=== PATIENT | female | born 1990 | race Caucasian/White ===

== ENCOUNTER 2020-01-11 11:55 | Emergency (ER) | payer OTHER, SELFPAY ==
[2020-01-11 12:14] VITALS: BP 114/73; PULSE 86; RESP 20; TEMP 36.4; O2SAT 100
--- NOTE | 2020-01-11 13:13 | ED.GENADULT ---
HPI - General Adult General Chief complaint: Ear Stated complaint: L/[place] Time Seen by Provider: 01/11/20 13:13 Source: patient Mode of arrival: ambulatory Limitations: no limitations History of Present Illness HPI narrative: 29-year-old female patient presents to the [facility] with complaints of left ear pain for the past 3 days. Patient states she has been having cold-like symptoms with a sore throat, stuffy nose and nasal drainage for the past week or so and states that the ear pain just started about 3 days ago. Patient denies any fevers that she is aware of. Patient states she has been taking ibuprofen for her pain. Related Data Allergies Allergy/AdvReac Type Severity Reaction Status Date / Time Penicillins Allergy Unknown Verified 03/29/18 20:50 Review of Systems Review of Systems: Narrative: CONSTITUTIONAL: Denies fever, chills, or sweats. EYES: Denies visual changes, redness, or discharge. ENT: Positive rhinorrhea, congestion, sore throat, positive left otalgia. CARDIOVASCULAR: Denies chest pain, palpitations, or edema. RESPIRATORY: Denies cough or dyspnea. GASTROINTESTINAL: Denies abdominal pain, nausea, vomiting, or diarrhea. GENITOURINARY: Denies dysuria or hematuria. SKIN: Denies rash or itching. MUSCULOSKELETAL: Denies back pain, joint pain, or myalgia. NEUROLOGIC: Denies headache, numbness, or weakness. PSYCHIATRIC: Denies anxiety or depression. PMFSH Comments At the time of my signature I agree with nursing past medical history, surgical, social, and family history. There is no relevant family history pertinent to the presenting complaint. Exam Narrative: Exam Narrative: GENERAL: Well-appearing, well-nourished, and in no acute distress. HEAD: Normocephalic, atraumatic. EYES: PERRLA and EOMI. ENT: Nares clear, no rhinorrhea or epistaxis. Mucous membranes moist. Posterior pharynx with slight erythema but no tonsil enlargement no exudates or lesions present. Left TM with erythema. No foreign bodies in the canal. NECK: Supple. No lymphadenopathy CHEST: Clear to auscultation. No respiratory distress. HEART: Regular rate and rhythm. No murmur heard. Normal peripheral pulses. ABDOMEN: Soft, nontender, nondistended, normal active bowel sounds. EXTREMITIES: Normal range of motion. No edema. SKIN: Warm, dry, no rash. NEURO: No focal deficits. Alert and oriented x3. Course Vital Signs Vital signs: Vital Signs Temperature 36.4 C 01/11/20 12:14 Pulse Rate 86 01/11/20 12:14 Respiratory Rate 01/11/20 12:14 Blood Pressure 114/73 01/11/20 12:14 Pulse Oximetry 100 01/11/20 12:14 Temperature 36.4 C 01/11/20 12:14 Pulse Rate 86 01/11/20 12:14 Respiratory Rate 01/11/20 12:14 Blood Pressure 114/73 01/11/20 12:14 Pulse Oximetry 100 01/11/20 12:14 Vital signs reviewed. Medical Decision Making Differential Diagnosis Differential Diagnosis: Differential diagnosis: Otitis media, otitis externa, perforated TM, infection of the outer ear, foreign body or cerumen impaction, ruptured TM, acute mastoiditis, ligament otitis externa, dehydration, pneumonia, sepsis, dental or intraoral infection, TMJ dysfunction Discussed with patient that does appear that she is got an ear infection to the left ear and therefore we will discharge her home with some antibiotics. Discussed with patient she can continue taking Tylenol and ibuprofen as needed for the pain. Discussed with patient I would also probably recommend a Flonase and a daily antihistamine such as Zyrtec or Silvia to help with the sinus and cold symptoms to promote the drainage away from the ears. Patient verbalized understanding denies any other questions or concerns at this time. Vital Signs Vital Signs: Vital Signs Temperature 36.4 C 01/11/20 12:14 Pulse Rate 86 01/11/20 12:14 Respiratory Rate 01/11/20 12:14 Blood Pressure 114/73 01/11/20 12:14 Pulse Oximetry 100 01/11/20 12:14 Temperature 36.4 C
== END 2020-01-11 13:27 | disposition home or self-care (01) ==
PROVIDERS: Emergency Provider Nurse Practitioner Family; PCP Emergency Medicine
DX: H66.92 Otitis media, unspecified, left ear (principal)
CPT/HCPCS: 99213; G0463

== ENCOUNTER 2021-05-07 08:48 | Inpatient (IN) | payer MEDICAID, SELFPAY ==
[2021-05-07] VITALS (52 sets, daily range): BP systolic 93–158; BP diastolic 43–115; PULSE 54–267; RESP 16–20; TEMP 36.6–36.9; O2SAT 74–100; BMI 26.4
--- NOTE | 2021-05-07 09:24 | PM.IMHP ---
H&P: HPI History of Present Illness Date/Time: 05/07/21 09:24 30 yo at 39wks presents for repeat low-transverse section and bilateral tubal sterilization. complicated by a history of MTHFR, GERD, SIMEON, HSV, prior and desires repeat and bilateral tubal sterilization. I explained her condition procedure and risks involved she understands accepts and agrees to proceed. [facility] tubal consent form has been signed. She understands the risk of surgery including but not limited to bleeding infection injury to bladder bowel baby pelvic vessels DVT endometritis UTI hemorrhage and the risk of anesthesia. She understands the failure rate of tubal sterilization 1 to 01/1000 with increased risk of ectopic and its sequelae. Patient will be undergoing repeat bilateral tubal sterilization with bilateral salpingectomy under spinal anesthesia. Chief Complaint: term repeat and bilateral tubal sterilization [facility] Past Medical History Medical History (Updated 05/07/21 @ 09:37 by Alvaro Chow MD) Compound heterozygous MTHFR mutation [id number] Depression Encounter for female sterilization procedure SIMEON (generalized anxiety disorder) GERD (gastroesophageal reflux disease) HSV (herpes simplex virus) infection Migraine Recurrent loss 11/27/20162080314Lwowrzfv, SpontaneousD&C required Smoker Spontaneous miscarriage 01/03/2018763719Pcoigggx, Spontaneous Subclinical hypothyroidism Term Vaginal delivery 08/21/20001406 lbs.8.99 oz.Standard Vaginal DeliveryFull Term [facility] Vaginal delivery 09/27/20021406 lbs.8.99 oz.Standard Vaginal DeliveryFull Term [facility] Vaginal delivery 04/14/20151426 lbs.8.99 oz.Standard Vaginal DeliveryFull Term [facility] Surgical History Surgical History (Updated 05/07/21 @ 09:38 by Alvaro Chow MD) [facility] and [facility]ttage Dilation and curettage - 11/27/2016 Family History Family History (Updated 05/07/21 @ 09:40 by Alvaro Chow MD) Mother , age 49 Lung cancer Grandparent Breast cancer Social History Social History (Updated 05/07/21 @ 09:42 by Alvaro Chow MD) Smoking packs per day: 1 Smoking cigarettes per day: 20.0 Years smoked: 10 Smoking pack-years: 10.00 Smoking status: Current every day smoker Tobacco type: cigarettes Second hand tobacco smoke exposure: Yes Alcohol intake: never Substance use: former Substance use type: marijuana Living arrangements: with family Occupation/Education: unemployed Gender identity (if verbalized by the patient): Female Sexual Orientation (if Verbalized by the Patient): Straight or Heterosexual Spiritual care concerns: No Agree to blood products: Yes Meds Home Medications and Allergies Home Medications Medication Instructions Recorded Confirmed Type cefdinir 300 mg PO Q12H 7 Days #14 cap 01/11/20 Rx Allergies Allergy/AdvReac Type Severity Reaction Status Date / Time Penicillins Allergy Unknown Verified 03/29/18 20:50 Exam Const: General: cooperative, healthy appearing, comfortable, no acute distress, well developed, alert, awake and Physically active Nutritional Appearance: average body habitus Orientation/consciousness: patient oriented x3 Limitations: no limitations HENMT: Head: normal to inspection Eyes: General: appearance normal, both eyes and all related structures Neck: Neck: normal visual inspection and full ROM Chest: Chest palpation & inspection: normal inspection of the chest Breast/axilla inspection: normal inspection of the breasts Resp: Effort & Inspection: normal respiratory effort Auscultation: clear to auscultation
--- NOTE | 2021-05-07 09:26 | WPDHPUPDATE1 ---
History and Physical Update Update Date/Time: 05/07/21 09:26 History and Physical has been reviewed, including an updated exam of the patient. There are NO changes in the patient's condition. Risks, benefits, and alternatives have been discussed and questions answered. Patient agrees to proceed with procedure. 30 yo at 39wks presents for repeat low-transverse section and bilateral tubal sterilization. complicated by a history of MTHFR, GERD, SIMEON, HSV, prior and desires repeat and bilateral tubal sterilization. I explained her condition procedure and risks involved she understands accepts and agrees to proceed. [place] [facility] tubal consent form has been signed. She understands the risk of surgery including but not limited to bleeding infection injury to bladder bowel baby pelvic vessels DVT endometritis UTI hemorrhage and the risk of anesthesia. She understands the failure rate of tubal sterilization 1 to 01/1000 with increased risk of ectopic and its sequelae. Patient will be undergoing repeat bilateral tubal sterilization with bilateral salpingectomy under spinal anesthesia.
--- NOTE | 2021-05-07 09:48 | WPDANESEPPF ---
Anes - Initial Pre Proc Eval Procedure: Operation Date: 05/07/21 10:30 Proposed Procedures p Repeat Section with Bilateral Salpingectomy for Sterilzation - Alvaro Chow MD Date/Time: 05/07/21 09:48 Surgeon: Alvaro Chow MD Pre Op Diagnosis: Patient Data Age: 30 Gender: F Height: Weight: Allergies Allergy/AdvReac Type Severity Reaction Status Date / Time Penicillins Allergy Unknown Verified 03/29/18 20:50 Home Medications Medication Instructions Recorded Confirmed Type cefdinir 300 mg PO Q12H 7 Days #14 cap 01/11/20 Rx Patient hx anesthesia problems: none Family hx anesthesia problems: none PMFSH Past Medical History Medical History (Updated 05/07/21 @ 09:37 by Alvaro Chow MD) Compound heterozygous MTHFR mutation C677T/[id number] Depression Encounter for female sterilization procedure SIMEON (generalized anxiety disorder) GERD (gastroesophageal reflux disease) HSV (herpes simplex virus) infection Migraine Recurrent loss 11/27/20161588686Ufivlbjq, SpontaneousD&C required Smoker Spontaneous miscarriage 01/03/2018407666Dfmfepkb, Spontaneous Subclinical hypothyroidism Term Vaginal delivery 08/21/20001406 lbs.8.99 oz.Standard Vaginal DeliveryFull Term [facility] Vaginal delivery 09/27/20021406 lbs.8.99 oz.Standard Vaginal DeliveryFull Term [facility] Vaginal delivery 04/14/20151426 lbs.8.99 oz.Standard Vaginal DeliveryFull Term [facility] Surgical History Surgical History (Updated 05/07/21 @ 09:38 by Alvaro Chow MD) Delivery by section 03/18/2019139.36 lbs.9 oz.MCesareanFull Term [facility] H/O dilation and curettage Dilation and curettage - 11/27/2016 Family History Family History (Updated 05/07/21 @ 09:40 by Alvaro Chow MD) Mother , age 49 Lung cancer Grandparent Breast cancer Social History Social History (Updated 05/07/21 @ 09:42 by Alvaro Chow MD) Smoking packs per day: 1 Smoking cigarettes per day: 20.0 Years smoked: 10 Smoking pack-years: 10.00 Smoking status: Current every day smoker Tobacco type: cigarettes Second hand tobacco smoke exposure: Yes Alcohol intake: never Substance use: former Substance use type: marijuana Living arrangements: with family Occupation/Education: unemployed Gender identity (if verbalized by the patient): Female Sexual Orientation (if Verbalized by the Patient): Straight or Heterosexual Spiritual care concerns: No Agree to blood products: Yes Anes - Eval Final PreProcedure Day of Procedure 05/07/21 09:48 Patient weight: obese Heart: regular rate and rhythm Lungs: clear to auscultation and normal air movement Airway: Mallampati scale class II Neurological: alert and oriented Last oral intake: >/= 8 hours ASA classification: II Emergent: no Anesthetic plan: proceed Anesthesia type and monitoring: regional spinal Informed Consent: The patient's anesthetic plan and its attendant risks and benefits were discussed with the patient/family/POA. Questions were solicited and answers provided to the satisfaction of the patient/family/POA.
[2021-05-07 10:30] LABS: Basophils Absolute Auto 0.1 K/mm3 (0.0-0.1); Basophils Percent Auto 0.7 % (0.2-1.2); Eosinophils Absolute Auto 0.2 K/mm3 (0-0.3); Hematocrit 32.3 % (37.0-47.0); Hemoglobin 10.3 g/dL (12.0-15.0); Immature Granulocyte Absolute 0.04 K/mm3 (0.00-0.031); Immature Granulocyte Percent A 0.4 % (0-0.5); Lymphocytes Percent Auto 22.1 % (18.3-44.2); Mean Corpuscular HGB Conc 31.9 g/dl (32-36); Mean Corpuscular Hemoglobin 27.5 pg (26-34); Mean Corpuscular Volume 86.4 fl (80-100); Mean Platelet Volume 10.2 fl (7.4-10.4); Monocytes Absolute Auto 0.9 K/mm3 (0.1-0.6); Monocytes Percent Auto 8.5 % (2.6-8.5); Neutrophils Absolute Auto 6.6 K/mm3 (1.3-6.7); Neutrophils Percent Auto 66.3 % (45.5-73.1); Platelet Count Result 279 k/mm3 (150-375); Red Blood Count 3.74 M/mm3 (4.2-5.4); Red Cell Distribution Width 13.4 % (11.5-14.5)
--- NOTE | 2021-05-07 10:39 | LDADM ---
This patient, Cristela Gaitan, was admitted to OB Post 113 on 05/07/21 at 08:48. Plans for labor, pain management and were discussed with patient. Patient/family oriented to hospital policies and general routines including ID bracelet, bed and alarms, visiting hours, pain management, procedures, bathroom and other care routines, personal items, smoking policy, room service/diet and guest tray routines, infant security routines, and visiting hours. Patient/Family are encouraged to report perceived risks to care and to ask questions if they do not understand what they are told or what they should do. See OBIX for further documentation.
[2021-05-07] MEDS: LACTATED RINGERS 1,000 ML 125 ML IV CONT (11:30)
[2021-05-07] MEDS: ceFAZolin 2 GM/D5W 50 ML 2 GM/50 ML BAG IVPB (11:42)
--- NOTE | 2021-05-07 12:56 | PM.OBPRVD ---
OB - Delivery Note Procedure Delivery date: 05/07/21 Procedure: Procedures Operation Date: 05/07/21 10:30 Actual Procedure Side Surgeon repeat low-transverse Section Bilateral tubal sterilization with bilateral salpingectomy Alvaro Chow MD events: Previous Intrapartal events: None Induction method: none Delivery monitor: external FHT and external uterine Route of delivery: Laceration Description: None Specimen: Yes Quantitative Blood Loss (ml): 330 Anesthesia type: Spinal Disposition: floor Complications: None Narrative: See full detailed note from tubal [place] Baby Date of : 05/07/21 Time of : 12:04 Weeks of gestation at delivery: 39 gender: Male Weight (pounds): 7 Weight (ounces): 5 presentation: vertex position: Left Occiput Anterior Placenta delivery description: Manual Removal and Normal Configuration cord vessel description: 3 Vessels score one minute: 8 score five minutes: 8
--- NOTE | 2021-05-07 12:59 | W.PM.PROC2 ---
Procedure Note - Detailed Date of Procedure 05/07/21 Pre-op Diagnosis Term Previous Desires repeat Desires bilateral tubal sterilization MTHFR HSV Smoker Recurrent loss Post-op Diagnosis same (Term delivered viable male Previous Desires repeat Desires bilateral tubal sterilization MTHFR HSV Smoker Recurrent loss) Procedure Performed Repeat low-transverse section with delivery of viable male infant and placenta Bilateral tubal sterilization with bilateral salpingectomy Surgeon Alvaro Chow MD Wire Rope Sling Maker printer's assistant x2 Anesthesia spinal (Duramorph) Indications Previous desires repeat section Desires bilateral tubal sterilization Findings Normal uterus tubes ovaries normal upper abdomen hemostatic after delivery Viable male delivered 1204 scores 8 and 8 at 1 and 5 minutes weighing 7 lb 5 oz and 19 in long taken to the nursery stable condition normal transition Placenta intact three-vessel cord normal uterus endometrium Counts correct Complications none Antibiotic prophylaxis Ancef 2 g VTE prevention SCDs To recovery room stable condition Bottle feeding Dr. Rousseau radio board operator Description of Procedure Informed consent obtained tubal sterilization papers from [facility] were confirmed patient taken to the operating room where she was given a spinal anesthetic with Duramorph in the sitting position and then supine position a Chappell catheter was inserted and her abdomen was then prepped and then draped in the usual sterile fashion. A time-out was performed and checked for adequate anesthesia confirmed. Elliptical incision was made around the old scar and the old scar was excised using electrocautery. The fascia was entered with electrocautery bilaterally and then undermined both superior and inferior. The rectus muscles were in the midline. The peritoneum was entered. The vesicouterine peritoneal reflection was incised transversely. A transverse incision was made to the uterus. The uterine incision was extended bilaterally digitally. Rupture membranes revealed clear amniotic fluid. The vertex was then delivered via the abdominal incision with the nose and throat being bulb suction. The cord was clamped and cut. The baby was handed to the OB nurse and nursery nurse in attendance scores 8 and 8 spontaneous respirations and cry normal transition weight 7 lb 5 oz 19 in long born at 12:04 p.m. taken to the nursery in stable condition. Placenta was then delivered intact with a three-vessel cord cord gases cord blood was obtained the uterus was externalized 10 units Pitocin given into the myometrium the uterus contracted well Pitocin given intravenously as well. Blood clots membranes removed from the entry uterine cavity. The uterine incision was then repaired in 2 layers with 0 Vicryl in a running interlocking fashion the 2nd being an imbricating stitch. Bilateral tubal sterilization was then performed in a bilateral sequential fashion the fallopian tubes were traced out to the fimbriated aspect the fallopian tubes were held with [place] clamps and the mesial salpinx was endo coagulated clamps were placed at the proximal tube the arcuate vessel in the fimbria ovarian vessels. The fallopian tubes were excised using electrocautery. The pedicles were then doubly ligated with 2 0 silk suture. Hemostasis was excellent the uterus ovaries were returned to the peritoneal cavity irrigation was performed sponge needle and instrument counts were correct. Anterior peritoneum and rectus muscles reapproximated with 0 Vicryl suture running fashion. Fascia was closed with 2. Quill S RS system bilaterally. Jazmine's fascia reapproximated with 3 0 plain interrupted fashion. Skin closed with the in sorb dissolvable holden and Mepilex and Dermabond applied patient tolerated proced
[2021-05-07 13:58] LABS: Amphetamine Screen Urine Negative (Negative); Barbiturate Screen Urine Negative (Negative); Benzodiazepines Screen Urine Negative (Negative); Cannabinoid Screen Urine Positive (Negative); Cocaine Screen Urine Negative (Negative); Methadone Screen Urine Negative (Negative); Opiate Screen Urine Negative (Negative); Phencyclidine Screen Urine Negative (Negative)
[2021-05-07] MEDS: OXYTOCIN 30 UNITS/NS 500 ML 30 UNITS/500 ML BAG 125 UNITS IV CONT (15:15)
--- NOTE | 2021-05-07 15:30 | PC.NURSE ---
Pt arrived on unit via stretcher accompanied by infant and taken to room 292. PT transferred to bed via maxi air without difficulty. PT oriented to room 292 and surrounding area. PT introductions made and plan of care discussed per postop c section, pain management, bottle feeding, daily care activities and positive drug screen on admission for marijuana. Pt received education and instructions per one to one discussion, mom baby care guide and demonstration. Mom only recipient of such instructions. No barriers to learning identified. PT verbalized understanding of such care. and welcome packet reviewed and discussed.
--- NOTE | 2021-05-07 15:54 | PCCCNOTE ---
Addendum entered by YAZMIN Chaudhry 05/07/21 16:23: 1620: Received an email from [facility] that states: Your information has been reviewed and assessed by a Chief Medical Director and was also approved by a hot strip mill supervisor. The information you provided did not meet one of the criteria for an investigation (eligible victim, eligible perpetrator, eligible event, or jurisdiction). The information as been documented and will be kept on file. Should you learn of further information or have additional concerns, please feel free to contact us. The final intake ID number for this report is [id number]. Original Note: Care Coordination: Met with pt. regarding positive urine drug screen for THC. Pt. reports using THC to help with her anxiety. FOB Addison at bedside. Pt. reports she, , two other children and FOB will be living on [address] [facility] in [facility]. Pt. reports this is her fifth baby; pt. has put one child up for adoption and one child is not in pt's custody. Pt. reports having support from both sides of hers and FOB family. Pt. reports she has everything necessary for . Pt. reports she is in the process of getting set up with [facility] and [employer]. Pt. denies prior DCFS involvement. Per Nursing, baby's meconium will be tested. resources provided to pt. Update given to VIPUL De Paz [facility] report made online: #[id number]. Pt. reports hopeful to discharge this weekend.
[2021-05-07] MEDS: DOCUSATE SODIUM 100 MG CAPSULE PO (19:20)
[2021-05-07] MEDS: SIMETHICONE 80 MG TAB.CHEW PO (19:20)
[2021-05-07] MEDS: KETOROLAC 30 MG/ML VIAL (*BKC) IV PUSH (19:23)
[2021-05-08 04:00] VITALS: BP 99/50; PULSE 67; RESP 16; TEMP 36.8
[2021-05-08] MEDS: IBUPROFEN 600 MG TABLET PO ×3 (04:20→20:08)
[2021-05-08 05:41] LABS: Basophils Percent Auto 0.2 % (0.2-1.2); Eosinophils Absolute Auto 0.2 K/mm3 (0-0.3); Eosinophils Percent Auto 0.9 % (0-4.4); Hematocrit 29.9 % (37.0-47.0); Hemoglobin 9.4 g/dL (12.0-15.0); Immature Granulocyte Absolute 0.12 K/mm3 (0.00-0.031); Immature Granulocyte Percent A 0.6 % (0-0.5); Lymphocytes Absolute Auto 1.65 K/mm3 (0.9-3.2); Lymphocytes Percent Auto 8.6 % (18.3-44.2); Mean Corpuscular HGB Conc 31.4 g/dl (32-36); Mean Corpuscular Hemoglobin 27.4 pg (26-34); Mean Corpuscular Volume 87.2 fl (80-100); Mean Platelet Volume 10.5 fl (7.4-10.4); Monocytes Absolute Auto 1.5 K/mm3 (0.1-0.6); Monocytes Percent Auto 7.7 % (2.6-8.5); Neutrophils Absolute Auto 15.8 K/mm3 (1.3-6.7); Platelet Count Result 254 k/mm3 (150-375); Red Blood Count 3.43 M/mm3 (4.2-5.4); Red Cell Distribution Width 13.5 % (11.5-14.5); White Blood Count 19.2 K/mm3 (4.5-10.0)
[2021-05-08 08:15] VITALS: BP 105/60; PULSE 72; RESP 16; TEMP 36.8; O2SAT 96
--- NOTE | 2021-05-08 08:15 | PM.OBPNVD ---
OB - PN: Subj Subjective Date/time seen: 05/08/21 08:15 Patient comments: no complaints, pain well controlled, tolerating diet and flatus present baby status: doing well and bottle feeding well feeding status: exclusively bottle feeding OB - PN: Obj Data Labs CBC & Chem 7: 05/08/21 04:09 Labs: Laboratory Results - last 24 hr 05/07/21 05/07/21 05/07/21 10:22 10:22 11:34 WBC 10.0 RBC 3.74 L Hgb 10.3 L Hct 32.3 L MCV 86.4 MCH 27.5 MCHC 31.9 L RDW 13.4 Plt Count 279 MPV 10.2 Immature Gran % (Auto) 0.4 Neut % (Auto) 66.3 Lymph % (Auto) 22.1 Ceiba % (Auto) 8.5 Eos % (Auto) 2.0 Baso % (Auto) 0.7 Lymph # (Auto) 2.20 Ceiba # (Auto) 0.9 H Eos # (Auto) 0.2 Baso # (Auto) 0.1 Abs Immat Gran (auto) 0.04 H Absolute Neuts (auto) 6.6 Absolute Nucleated RBC 0.0 Nucleated RBC % 0.0 Urine Opiates Screen Negative Urine Methadone Screen Negative Ur Barbiturates Screen Negative Ur Phencyclidine Scrn Negative Ur Amphetamine Screen Negative U Benzodiazepines Scrn Negative Urine Cocaine Screen Negative U Cannabinoids Screen Positive A Blood Type O Positive Antibody Screen Negative 05/08/21 04:09 WBC 19.2 H RBC 3.43 L Hgb 9.4 L Hct 29.9 L MCV 87.2 MCH 27.4 MCHC 31.4 L RDW 13.5 Plt Count 254 MPV 10.5 H Immature Gran % (Auto) 0.6 H Neut % (Auto) 82.0 H Lymph % (Auto) 8.6 L Ceiba % (Auto) 7.7 Eos % (Auto) 0.9 Baso % (Auto) 0.2 Lymph # (Auto) 1.65 Ceiba # (Auto) 1.5 H Eos # (Auto) 0.2 Baso # (Auto) 0.0 Abs Immat Gran (auto) 0.12 H Absolute Neuts (auto) 15.8 H Absolute Nucleated RBC 0.0 Nucleated RBC % 0.0 Urine Opiates Screen Urine Methadone Screen Ur Barbiturates Screen Ur Phencyclidine Scrn Ur Amphetamine Screen U Benzodiazepines Scrn Urine Cocaine Screen U Cannabinoids Screen Blood Type Antibody Screen OB - PN A/P Assessment and Plan (1) Anemia: Code(s): D64.9 - Anemia, unspecified Status: Acute (2) Term delivered: Code(s): O80 - Encounter for full-term uncomplicated delivery Status: Acute (3) Delivery by section: Status: Acute (4) Encounter for female sterilization procedure: Code(s): Z30.2 - Encounter for sterilization Status: Acute Plan day: 1 Plan: routine care, discharge home and follow up 6 weeks Time Spent With Patient Time: Total time spent is greater than 50% in coordination of care (as documented) at patient's floor/unit and/or counseling patient: Time with patient: less than 15 minutes Review of Systems Review of Systems: All systems reviewed & are unremarkable except as noted in HPI and below Exam Const: General: comfortable, no acute distress, alert and awake Orientation/consciousness: patient oriented x3 Chest: Breast/axilla inspection: normal inspection of the breasts Resp: Effort & Inspection: normal respiratory effort Auscultation: clear to auscultation bilaterally Cardio: Rate: regular rate GI: Inspection: normal to inspection and incision (Dressing dry and intact) GI Palp: Yes Soft to palpation Percussion: Yes normal to percussion Auscultation: normal bowel sounds : General: Yes no CVA tenderness Bimanual exam- vagina & uterus: non-tender Urinary Catheter: Urinary Catheter: patent and draining and urine clear Psych: Appearance: grossly normal Mental Status: mental status grossly normal Affect: normal affect Attitude: cooperative Thought content: Yes Normal thought content present Judgement: Good judgement present (Psych)
--- NOTE | 2021-05-08 09:21 | WPDANLDPN2 ---
Anes-Prog Note L&D Date/Time: 05/08/21 09:21 Comfortable throughout: section Neuraxial method: spinal Epidural/Spinal procedure site: clean & non-tender Neuro status: Neuro function grossly intact. Cardiovascular status: normal Respiratory status: normal Airway patency: baseline Mental status: baseline Post-Op hydration status: normal Vital Signs: Last Vital Signs Temp 36.8 C 05/08/21 04:00 Pulse 67 05/08/21 04:00 Resp 16 05/08/21 04:00 BP 99/50 L 05/08/21 04:00 Pulse Ox 100 05/07/21 17:00 Pain score (VAS): 3 I/O: Intake & Output 05/07/21 05/08/21 05/08/21 23:59 07:59 15:59 Intake Total 1000 480 Output Total 750 300 Balance 250 180 Post-procedural complaints: none Patient feedback: Patient satisfied with anesthetic care.
--- NOTE | 2021-05-08 09:22 | WPDANLDNPN2 ---
Anes-Prog Note L&D-Neuraxial Date/Time: 05/08/21 09:22 Neuraxial medications: intrathecal PF morphine Opiod-related complaints: none Patient feedback: Patient satisfied with post-operative pain management.
[2021-05-08] MEDS: POLYSACCHARIDE IRON COMPLEX 150 MG CAPSULE PO ×2 (12:13→16:50)
[2021-05-08] MEDS: ESCITALOPRAM OXALATE 10 MG TABLET PO (12:13)
[2021-05-08] MEDS: DOCUSATE SODIUM 100 MG CAPSULE PO ×2 (12:13→16:49)
[2021-05-08] MEDS: buPROPion HCL XL (24 HR) 150 MG TABCR PO (12:14)
[2021-05-08 12:30] VITALS: BP 110/62; PULSE 70; RESP 16; TEMP 36.7; O2SAT 97
[2021-05-08] MEDS: HYDROcodone/acetaminophen (*CRX) 10-325 MG TABLET 1 TAB PO (16:49)
[2021-05-08 20:00] VITALS: BP 120/69; PULSE 70; RESP 16; TEMP 36.6; O2SAT 100
[2021-05-08] MEDS: SIMETHICONE 80 MG TAB.CHEW PO (20:08)
[2021-05-08] MEDS: HYDROcodone/acetaminophen (*CRX) 5-325 MG TABLET 1 TAB PO (20:08)
--- NOTE | 2021-05-09 04:10 | PC.NURSE ---
05/08/2021 at 2300 Patient viewed the discharge video Mother & Baby Care, The First Two Weeks . Patient was given the opportunity and encouraged to ask questions. Patient verbalized understanding of information shared and has been given the mother/baby guide for home reference.
[2021-05-09 08:00] VITALS: BP 103/69; PULSE 75; RESP 16; TEMP 36.6; O2SAT 99
[2021-05-09] MEDS: POLYSACCHARIDE IRON COMPLEX 150 MG CAPSULE PO (10:31)
[2021-05-09] MEDS: DOCUSATE SODIUM 100 MG CAPSULE PO (10:31)
[2021-05-09] MEDS: ESCITALOPRAM OXALATE 10 MG TABLET PO (10:31)
[2021-05-09] MEDS: IBUPROFEN 600 MG TABLET PO (10:32)
[2021-05-09] MEDS: buPROPion HCL XL (24 HR) 150 MG TABCR PO (10:32)
[2021-05-09] MEDS: HYDROcodone/acetaminophen (*CRX) 5-325 MG TABLET 1 TAB PO (10:32)
--- NOTE | 2021-05-09 12:10 | PC.NURSE ---
Per instructions from Dr. Chow, patient should remove Aquacel Mepilex AG dressing in 1 week; RN gave instruction sheet to patient for use and care of this dressing.
--- NOTE | 2021-05-09 13:08 | PM.OBDSVD ---
DS: Admitting Diagnosis Admitting Diagnosis Admitting Diagnosis: Term Previous desires repeat Desires bilateral tubal sterilization General herpes MTHFR Smoker Recurrent losses DS: Discharge Diagnosis Discharge Diagnosis (1) Term delivered: Code(s): O80 - Encounter for full-term uncomplicated delivery Status: Acute (2) Delivery by section: Status: Acute (3) Encounter for female sterilization procedure: Code(s): Z30.2 - Encounter for sterilization Status: Acute (4) HSV (herpes simplex virus) infection: Code(s): B00.9 - Herpesviral infection, unspecified Status: Acute (5) Smoker: Code(s): F17.200 - Nicotine dependence, unspecified, uncomplicated Status: Acute (6) Compound heterozygous MTHFR mutation [id number]: Code(s): Z15.89 - Genetic susceptibility to other disease Status: Acute (7) Recurrent loss: Code(s): N96 - Recurrent loss Status: Acute OB - DS: Summary Hospital Course Time spent discussing smoking cessation with patient: 3 to 10 minutes OB Procedures : Ultrasound OB Procedures Intrapartum: low cervical, transverse and Tubal ligation OB Procedures: : P.P. tubal ligation Peripartum Data Delivery Method: Section Laceration Description: None Episiotomy description: None Procedures: Procedures Operation Date: 05/07/21 10:30 Actual Procedure Side Surgeon repeat low-transverse Section with delivery of viable male infant and placenta Bilateral tubal sterilization with bilateral salpingectomy Alvaro Chow MD complications: none [place] 1: Gender: Male Disposition of : home Status at Discharge Cognitive/behavioral status at discharge: Normal Functional status at discharge: independent ambulation Overall status at discharge: patient is back to baseline Time Spent with Patient Time attestation: Total time spent providing and/or coordinating discharge services: Time spent: Less than 30 minutes Exam Const: General: cooperative, healthy appearing, comfortable, no acute distress, well developed, alert, awake and Physically active Nutritional Appearance: average body habitus Orientation/consciousness: patient oriented x3 Limitations: no limitations HENMT: Head: normal to inspection Eyes: General: appearance normal, both eyes and all related structures Neck: Neck: normal visual inspection Chest: Chest palpation & inspection: normal inspection of the chest Resp: Effort & Inspection: normal respiratory effort Cardio: Rate: regular rate Rhythm: regular rhythm GI: Inspection: normal to inspection and incision (Dressing dry and intact) GI Palp: Yes Soft to palpation Auscultation: normal bowel sounds : External Female Exam: normal external appearance Bimanual exam- vagina & uterus: non-tender Back/Spine/Pelvis: Back: no CVA tenderness Skin: General skin exam: normal color Neuro: General: patient oriented x3, gait normal, tone normal and moves all extremities Extrem: General: normal to inspection and full ROM Psych: Appearance: grossly normal Mental Status: mental status grossly normal Speech and movement: Normal speech and movement present Affect: normal affect Attitude: cooperative Thought process: Normal thought process present Thought content: Yes Normal thought content present Insight: Good insight present (Psych) Judgement: Good judgement present (Psych) DS: Data Data Completed and Pending Pending studies at discharge: Pending at discharge 05/07/21 12:35 Surgical [PTH] Routine Labs on day of discharge: Labs from last 24 hours 05/07/21 05/07/21 05/07/21 11:34 10:22 10:22 WBC RBC Hgb Hct MCV MCH MCHC RDW Plt Count MPV Immature Gran % (Auto) Neut % (Auto) Lymph % (Auto)
[2021-05-10 09:16] LABS: Rapid Plasma Reagin Non-Reactive (NonReactive)
[2021-05-12 11:32] VITALS: BP 126/68; PULSE 66; RESP 20; TEMP 37.1; O2SAT 100
== END 2021-05-09 13:37 | disposition home or self-care (01) | DRG 540 ==
LOC: ANHOBPP 13:15 → ANHOB2 15:44
PROVIDERS: Admitting Provider Obstetrics & Gynecology; PCP Emergency Medicine; Visit Provider Obstetrics & Gynecology
PROC: 10D00Z1 Extraction of Products of Conception, Low, Open Approach (ICD-10-PCS; CPT 59514; principal; 2021-05-07 10:30)
DX: O34.211 Maternal care for low transverse scar from previous cesarean delivery (principal); Z30.2 Encounter for sterilization; O99.284 Endocrine, nutritional and metabolic diseases complicating childbirth; E72.12 Methylenetetrahydrofolate reductase deficiency; O99.334 Smoking (tobacco) complicating childbirth; F17.210 Nicotine dependence, cigarettes, uncomplicated; Z3A.39 39 weeks gestation of pregnancy; Z37.0 Single live birth; O99.344 Other mental disorders complicating childbirth; F41.9 Anxiety disorder, unspecified
CPT/HCPCS: 36415; 80307; 85025; 86592; 86850; 86900; 86901; 88302; 88307; A9270; J0131; J0690; J1885; J2274; J2370; J2590; J7120

== ENCOUNTER 2022-08-26 14:20 | Emergency (ER) | payer OTHER, SELFPAY ==
[2022-08-26 14:29] VITALS: BP 139/94; PULSE 76; RESP 16; TEMP 36.9; O2SAT 100
--- NOTE | 2022-08-26 15:41 | ED.EAR ---
HPI - Ear Problem General Chief complaint: Ear Stated complaint: Left ear ache Time Seen by Provider: 08/26/22 15:41 Source: patient and RN notes reviewed Mode of arrival: ambulatory Limitations: no limitations History of Present Illness HPI Narrative: 31-year-old female presents to the [facility] with complaints of left ear pain and a sore throat. Symptoms started yesterday. Denies fevers. No treatment prior to arrival. Related Data Allergies Allergy/AdvReac Type Severity Reaction Status Date / Time Penicillins Allergy Unknown Verified 03/29/18 20:50 Review of Systems Review of Systems: All systems reviewed & are unremarkable except as noted in HPI and below Constitutional: Constitutional: Reports no additional constitutional complaints, Denies chills and Denies fever(s) Eyes: Eyes: Reports no additional eye complaints ENT: Reports as per HPI Cardiovascular: Cardiovascular: Reports no additional cardiovascular complaints Respiratory: Respiratory: Reports no additional respiratory complaints Gastrointestinal: Gastrointestinal: Reports no additional gastrointestinal complaints Musculoskeletal: Musculoskeletal: Reports no additional musculoskeletal complaints Integumentary/Breasts: Skin/Breast: Reports system reviewed and no additional complaints, except as docu Neurologic: Reports system reviewed and no additional complaints, except as documented Psychiatric: Psychiatric: Reports no additional psychiatric complaints Allergic/Immunologic: Allergic/Immunologic: Reports no additional allergic/immunologic complaints [facility] Past Medical History Medical History (Updated 08/26/22 @ 15:46 by Lizabeth So APRN) Anemia Compound heterozygous MTHFR mutation [id number] Depression Encounter for female sterilization procedure SIMEON (generalized anxiety disorder) GERD (gastroesophageal reflux disease) HSV (herpes simplex virus) infection Migraine Recurrent loss 11/27/20161219913Ytqclwtx, SpontaneousD&C required Smoker Spontaneous miscarriage 01/03/2018873141Tcskpcju, Spontaneous Subclinical hypothyroidism Term Vaginal delivery 08/21/20001406 lbs.8.99 oz.Standard Vaginal DeliveryFull Term [facility] Vaginal delivery 09/27/20021406 lbs.8.99 oz.Standard Vaginal DeliveryFull Term [facility] Vaginal delivery 04/14/20151426 lbs.8.99 oz.Standard Vaginal DeliveryFull Term [facility] Surgical History Surgical History Delivery by section 03/18/2019139.36 lbs.9 oz.DavidsareanKim Term [facility] H/O dilation and curettage Dilation and curettage - 11/27/2016 Family History Family History Mother , age 49 Lung cancer Grandparent Breast cancer Social History Social History Smoking packs per day: 1 Smoking cigarettes per day: 20.0 Years smoked: 10 Smoking pack-years: 10.00 Smoking status: Current every day smoker Tobacco type: cigarettes Second hand tobacco smoke exposure: Yes Alcohol intake: never Substance use: current Substance use type: marijuana Gender identity (if verbalized by the patient): Female Sexual Orientation (if Verbalized by the Patient): Straight or Heterosexual Spiritual care concerns: No Agree to blood products: Yes Comments At the time of my signature, I reviewed and agree with the nursing past medical, surgical, social, and family history. There is no relevant family history pertinent to the patient complaint. Exam Const: General: healthy appearing, no acute distress and alert Nutritional Appearance: well nourished Orientation/consciousness: patient oriented x3 Limitations: no limitations HENMT: Head: normal to inspection Ears: EAC's dharmesh
== END 2022-08-26 16:05 | disposition home or self-care (01) ==
PROVIDERS: Emergency Provider Nurse Practitioner; PCP Emergency Medicine
DX: H66.92 Otitis media, unspecified, left ear (principal); F17.210 Nicotine dependence, cigarettes, uncomplicated; F12.90 Cannabis use, unspecified, uncomplicated; K21.9 Gastro-esophageal reflux disease without esophagitis; F41.1 Generalized anxiety disorder; F32.A Depression, unspecified
CPT/HCPCS: 99213; G0463

== ENCOUNTER 2024-10-02 19:58 | Emergency (ER) | payer OTHER, SELFPAY ==
--- NOTE | ~2024-10-02 | XR_ITS ---
CHEST RADIOGRAPH, PA AND LATERAL CLINICAL HISTORY: CP . COMPARISON: None available TECHNIQUE: PA and lateral views of the chest. FINDINGS The cardiomediastinal silhouette is unremarkable. The lungs are clear. Visualized osseous structures and soft tissues are unremarkable. IMPRESSION: No focal infiltrate or effusion. Reviewed, dictated and finalized at location A. NISTRATION PHYSICIAN
--- NOTE | 2024-10-02 20:00 | ECG_ITS ---
Test Date: 2024-10-02 20:09:20 Measurements Intervals [place] Rate: 91 P: 76 WY: 130 QRS: 79 QRSD: 94 T: 71 QT: 382 QTc: 471 Interpretive Statements SINUS RHYTHM ST DEVIATION AND MODERATE T-WAVE ABNORMALITY, CONSIDER ANTEROLAT/INF ISCHEMIA BASELINE ARTIFACT- I, II, III, AVR, AVL, AVF ABNORMAL ECG No previous ECG available for comparison Electronically Signed On 10-03-2024 05:22:21 [employer] by Jacky Hughes D.O.
[2024-10-02 20:02] VITALS: BP 141/81; PULSE 92; RESP 14; TEMP 36.6; O2SAT 100
[2024-10-02 20:28] LABS: Basophils Percent Auto 0.2 % (0.2-1.2); Eosinophils Absolute Auto 0.1 K/mm3 (0-0.3); Eosinophils Percent Auto 0.5 % (0-4.4); Hematocrit 39.1 % (37.0-47.0); Hemoglobin 14.3 g/dL (12.0-15.0); Immature Granulocyte Absolute 0.08 K/mm3 (0.00-0.031); Immature Granulocyte Percent A 0.6 % (0-0.5); Lymphocytes Absolute Auto 1.66 K/mm3 (0.9-3.2); Lymphocytes Percent Auto 13.5 % (18.3-44.2); Mean Corpuscular HGB Conc 36.6 g/dl (32-36); Mean Corpuscular Hemoglobin 37.8 pg (26-34); Mean Corpuscular Volume 103.4 fl (80-100); Monocytes Absolute Auto 1.2 K/mm3 (0.1-0.6); Monocytes Percent Auto 9.7 % (2.6-8.5); Neutrophils Absolute Auto 9.3 K/mm3 (1.3-6.7); Neutrophils Percent Auto 75.5 % (45.5-73.1); Platelet Count Result 190 k/mm3 (150-375); Red Blood Count 3.78 M/mm3 (4.2-5.4); Red Cell Distribution Width 13.6 % (11.5-14.5); White Blood Count 12.3 K/mm3 (4.5-10.0)
[2024-10-02 20:31] VITALS: O2SAT 100
[2024-10-02 20:41] LABS: Prothrombin Time 14.1 Seconds (11.1-14.7)
[2024-10-02 20:42] LABS: Partial Thromboplastin Time 34.2 Seconds (22.3-36.8)
[2024-10-02 20:48] LABS: Alanine Aminotransferase 38 U/L (6-35); Albumin Level 3.9 g/dL (3.5-5.1); Alkaline Phosphatase 111 U/L (38-126); Anion Gap 8 mmol/L (4-12); Aspartate Amino Transferase 58 U/L (14-36); Bilirubin,Total 1.3 mg/dL (0.2-1.3); Blood Urea Nitrogen 8 mg/dL (7-17); Calcium 8.5 mg/dL (8.4-10.2); Carbon Dioxide 35 mmol/L (22-30); Chloride 94 mmol/L (98-107); Estimated CRCL calculation 114 ml/min; Estimated Glomerular Filt Rate > 60; Glucose 138 mg/dL (65-110); Lipase 106 U/L (23-300); Sodium 137 mmol/L (137-145)
[2024-10-02 20:50] LABS: Troponin I < 0.012 ng/mL (0.000-0.034)
[2024-10-02] MEDS: POTASSIUM CHLORIDE 20 MEQ PACKET (FOR LIQUID) 40 MEQ PO (20:59)
--- NOTE | 2024-10-02 21:00 | PC.NURSE ---
Pt refusing IV potassium as well as admission. Pt states she has no one to watch her kids so she would like to sign out AMA. Pt educated on the risks of leaving including worsening condition and . Pt still states she would like to sign out AMA.
[2024-10-02 21:07] VITALS: BP 125/91; PULSE 91; RESP 16; O2SAT 99
[2024-10-02 21:07] LABS: Magnesium 1.6 mg/dL (1.6-2.3)
--- NOTE | 2024-10-02 21:26 | ED_ITS ---
HPI - Chest Pain General Chief Complaint: Chest Pain Stated Complaint: CP, body aches, headache, cough Time Seen by Provider: 10/02/24 20:01 Source: patient Mode of arrival: ambulatory Limitations: no limitations History of Present Illness HPI narrative: 34-year-old with history of anxiety, depression here with complaints of having intermittent chest pain on and off for past few days. 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 She also complains of generalized body aches. No history of fever or chills. Denies any nausea, vomiting or diarrhea. No previous history of CAD. MD complaint: chest pain Onset (ago): day(s) (3) Timing of current episode: episodic Prior episodes: Yes Pain location: left chest Pain radiation: none Severity: mild Quality: aching Relieving factors: nothing Treatment prior to arrival: none Related Data Allergies Allergy/AdvReac Type Severity Reaction Status Date / Time Penicillins Allergy Unknown Rash Verified 10/02/24 19:59 [facility] Past Medical History Medical History Anemia Compound heterozygous MTHFR mutation [id number] Depression Encounter for female sterilization procedure SIMEON (generalized anxiety disorder) GERD (gastroesophageal reflux disease) HSV (herpes simplex virus) infection Migraine Recurrent loss 11/27/20162768201Rvmmfhmx, SpontaneousD&C required Smoker Spontaneous miscarriage 01/03/2018561948Rfjohhkx, Spontaneous Subclinical hypothyroidism Term Vaginal [facility]21[facility]20001406 [facility] 09/27/20021406 [facility].8.99 [facility]2015[facility] Surgical History Surgical History Delivery by section 03/18/2019139.36 lbs.9 oz.[facility] H/O dilation and curettage Dilation and curettage - 11/27/2016 Family History Family History Mother , age 49 Lung cancer Grandparent Breast cancer Social History Social History Smoking packs per day: 1 Smoking cigarettes per day: 20.0 Years smoked: 10 Smoking pack-years: 10.00 Smoking status: Current every day smoker Tobacco type: cigarettes Second hand tobacco smoke exposure: Yes Alcohol intake: never Substance use: current Substance use type: marijuana Living arrangements: with family Occupation/Education: unemployed Gender identity (if verbalized by the patient): Female Sexual Orientation (if Verbalized by the Patient): Straight or Heterosexual Spiritual care concerns: No Agree to blood products: Yes Exam Narrative: GENERAL: Well-appearing, well-nourished, and in no acute distress. HEAD: Normocephalic, atraumatic. EYES: PERRLA and EOMI. NECK: Supple. CHEST: Clear to auscultation. No respiratory distress. HEART: Regular rate and rhythm. No murmur heard. Normal peripheral pulses. ABDOMEN: Soft, nontender, nondistended, normal active bowel sounds. EXTREMITIES: Normal range of motion. No edema. SKIN: Warm, dry, no rash. NEURO: No focal deficits. Alert and oriented x3. PSYCH: Normal mood and affect. Course Course Emergency Course: Patient comfortably resting on the bed in no discomfort. I did inform her about the lab work. Patient declined admission I told her her potassium levels are extremely low and I cannot give IV potassium fast , it may take a day or more to get to the normal levels, them . She stated that, she cannot even stay any longer . She is willing to sign AMA and leave. Vital Signs Vital signs: Vital Signs Temperature 36.6 C 10/02/24 20:02 Pulse Rate 92 10/02/24 20:02 Respiratory Rate 14 10/02/24 20:02 Blood Pressure 141/81 H 10/02/24 20:02 Pulse Oximetry 100 10/02/24 20:02 Oxygen Delivery Room Air 10/02/24 20:02 Temperature 36.6 C 10/02/24 20:02 Pulse Rate 91 10/02/24 21:07 Respiratory Rate 16 10/02/24 21:07 Blood Pressure 125/91 H 10/02/24 21:07 Pulse Oximetry 99 10/02/24 21:07 Oxygen Delivery Room Air 10/02/24 20:31 MDM - Chest Pain MDM Narrative Medical decision making narrative: 34 yr with a History of anxiety, depression here with complaints of intermittent chest pain well, her exam is unremarkable will do cardiac workup. Lab Data 10/02/24 20:11 10/02/24 20:11 Labs: Lab Results 10/02/24 10/02/24 Range/Units 20:10 20:11 WBC 12.3 H (4.5-10.0) K/mm3 RBC 3.78 L (4.2-5.4) M/mm3 Hgb 14.3 D (12.0-15.0) g/dL Hct 39.1 (37.0-47.0) % MCV 103.4 H (80-100) fl MCH 37.8 H (26-34) pg MCHC 36.6 H (32-36) g/dl RDW 13.6 (11.5-14.5) % Plt Count 190 (150-375) k/mm3 MPV 10.0 (7.4-10.4) fl Immature Gran % (Auto) 0.6 H (0-0.5) % Neut % (Auto) 75.5 H (45.5-73.1) % Lymph % (Auto) 13.5 L (18.3-44.2) % [place] % (Auto) 9.7 H (2.6-8.5) % Eos % (Auto) 0.5 (0-4.4) % Baso % (Auto) 0.2 (0.2-1.2) % Lymph # (Auto) 1.66 (0.9-3.2) K/mm3 [place] # (Auto) 1.2 H (0.1-0.6) K/mm3 Eos # (Auto) 0.1 (0-0.3) K/mm3 Baso # (Auto) 0.0 (0.0-0.1) K/mm3 Abs Immat Gran (auto) 0.08 H (0.00-0.031) K/mm3 Absolute Neuts (auto) 9.3 H (1.3-6.7) K/mm3 Absolute Nucleated RBC 0.000 (0.0-0.012) K/mm3 Nucleated RBC % 0.0 (0.0-0.2) % PT 14.1 (11.1-14.7) Seconds INR 1.0 APTT 34.2 (22.3-36.8) Seconds Sodium 137 (137-145) mmol/L Potassium 2.0 L* (3.4-5.0) mmol/L Chloride 94 L (98-107) mmol/L Carbon Dioxide 35 H (22-30) mmol/L Anion Gap 8 (4-12) mmol/L BUN 8 (7-17) mg/dL Creatinine 0.50 L (0.7-1.0) mg/dL Estim Creat Clear Calc 114 ml/min Estimated GFR > 60 (59 - ) Glucose 138 H (65-110) mg/dL Calcium 8.5 (8.4-10.2) mg/dL Magnesium 1.6 (1.6-2.3) mg/dL Total Bilirubin 1.3 (0.2-1.3) mg/dL AST 58 H (14-36) U/L ALT 38 H (6-35) U/L Alkaline Phosphatase 111 (38-126) U/L Troponin I < 0.012 (0.000-0.034) ng/mL Total Protein 8.0 (6.3-8.2) g/dL Albumin 3.9 (3.5-5.1) g/dL Lipase 106 (23-300) U/L Imaging Data Radiologist's impression: ITS Impressions Chest X-Ray 10/02/24 20:33 IMPRESSION: No focal infiltrate or effusion. ECG Data EKG #1: ECG completion date: 10/02/24 ECG completion time: 20:09 EKG Interpretation: normal rate (91), sinus rhythm, non-specific ST changes and NL axis Discharge Plan Discharge Clinical Impression: Atypical chest pain, Acute hypokalemia Patient Disposition: Left Against Medical Advice Prescriptions: No Action azithromycin 500 mg tablet 500 mg PO DAILY 5 Days Qty: 5 0RF escitalopram oxalate 10 mg tablet 10 mg PO DAILY Qty: 100 3RF bupropion HCl 150 mg tablet extended release 24 hr 150 mg PO DAILY Qty: 100 3RF Follow-up/Referrals: Prem Gonzalez MD [Primary Care Provider] - Time of Disposition: 21:27
== END 2024-10-02 21:12 | disposition left against medical advice (07) ==
LOC: ANHED 20:08
PROVIDERS: Student in an Organized Health Care Education/Training Program; Emergency Provider Family Medicine; PCP Emergency Medicine
DX: R07.89 Other chest pain (principal); E87.6 Hypokalemia; K21.9 Gastro-esophageal reflux disease without esophagitis; E03.8 Other specified hypothyroidism; F41.1 Generalized anxiety disorder; F17.210 Nicotine dependence, cigarettes, uncomplicated; Z86.2 Personal history of diseases of the blood and blood-forming organs and certain disorders involving the immune mechanism; Z79.899 Other long term (current) drug therapy; R94.31 Abnormal electrocardiogram [ECG] [EKG]
CPT/HCPCS: 36415; 71046; 80053; 83690; 83735; 84484; 85025; 85610; 85730; 93005; 99284; A9270